=== PATIENT | female | born 1985 | race Caucasian/White ===

== ENCOUNTER 2018-07-13 10:43 | Emergency (ER) | payer BC, MEDICAID ==
[2018-07-13] MEDS ORDERED: LIDOCAINE 2% VISCOUS SOLN 20 ML UDCUP PO ONE (13:09)
[2018-07-13] MEDS ORDERED: HYDROCODONE/ACETAMINOPHEN 5-325 MG TABLET PO ONE (13:09)
--- NOTE | 2018-07-13 13:13 | ER Document Report ---
ED Oral Problem - General Chief Complaint: Toothache Stated Complaint: TOOTH PAIN Time Seen by Provider: 07/13/18 12:50 TRAVEL OUTSIDE OF THE [place] IN LAST 30 DAYS: No - Related Data Allergies/Adverse Reactions: sumatriptan [From Imitrex] Allergy (Severe, Verified 07/13/18 10:45) sumatriptan succinate [From Imitrex] Allergy (Severe, Verified 07/13/18 10:45) Past Medical History - Social History Smoking Status: Unknown if Ever Smoked Patient has suicidal ideation: No Patient has homicidal ideation: No - Past Medical History Cardiac Medical History: Denies: Hx Heart Attack, Hx Hypertension Pulmonary Medical History: Denies: Hx Asthma Neurological Medical History: Denies: Hx Cerebrovascular Accident, Hx Seizures Renal/ Medical History: Denies: Hx Peritoneal Dialysis GI Medical History: Denies: Hx Hepatitis, Hx Hiatal Hernia, Hx Ulcer Infectious Medical History: Denies: Hx Hepatitis Past Surgical History: Denies: Hx Hysterectomy, Hx Mastectomy, Hx Open Heart Surgery, Hx Pacemaker Physical Exam - Vital signs Vitals: Temp Pulse Resp BP Pulse Ox 98.6 F 111 H 16 125/75 97 07/13/18 10:48 07/13/18 10:48 07/13/18 10:48 07/13/18 10:48 07/13/18 10:48 Course - Vital Signs Vital signs: Temp Pulse Resp BP Pulse Ox 98.6 F 111 H 16 125/75 97 07/13/18 10:48 07/13/18 10:48 07/13/18 10:48 07/13/18 10:48 07/13/18 10:48 Discharge - Discharge Clinical Impression: Tooth ache, Tobacco abuse Condition: Good Disposition: HOME, SELF-CARE Instructions: [facility] Additional Instructions: You were seen today in the emergency department for the pain in your teeth. You had an evaluation including a physical exam. You should use the medication prescribed to you as needed for the pain in your mouth, swish the medication your mouth and then spit it out. You can also use Orajel off of the shelf to try and help with this pain. You should take ibuprofen 800 mg over the next 3 days every 8 hours as needed for pain. Return in case of worsening fevers or chills otherwise you should schedule appointment with your dentist as early as possible. Prescriptions: Lidocaine HCl [Xylocaine 2% Viscous Soln 20 ml Udcup] 20 ml MM BID PRN #5 udc PRN Reason: Forms: Smoking Cessation Education
[2018-07-13 13:40] VITALS: BP 132/80
== END 2018-07-13 13:42 | disposition home or self-care (01) ==
LOC: ER 10:43
DX: K08.89 Other specified disorders of teeth and supporting structures (principal); F17.200 Nicotine dependence, unspecified, uncomplicated
CPT/HCPCS: 99283; J3490